=== PATIENT | female | born 1980 | race Hispanic/Latino ===

== ENCOUNTER → 2023-10-12 09:03 | Outpatient (REF) | payer OTHER, SELFPAY | LOC: RSP 09:03 | PROVIDERS: ATTENDING PHYSICIAN Nurse Practitioner Family | DX: J45.31 Mild persistent asthma with (acute) exacerbation (principal) | CPT/HCPCS: 94727; 94729; 88738; 94010 ==

== ENCOUNTER → 2025-04-23 12:28 | Outpatient (REF) | payer BC, SELFPAY | LOC: WDC 12:28 | PROVIDERS: ATTENDING PHYSICIAN Obstetrics & Gynecology Gynecology; FAMILY PHYSICIAN Nurse Practitioner Primary Care | DX: Z12.31 Encounter for screening mammogram for malignant neoplasm of breast (principal) | CPT/HCPCS: 77063; 77067 ==